=== PATIENT | male | born 2000 | race African-American/Black ===

== ENCOUNTER 2019-04-30 05:57 | Observation (INO) | payer SELFPAY ==
[~2019-04-30] VITALS: Ht 180.3 cm; Wt 66.0 kg
[2019-04-30] MEDS ORDERED: dexameTHASONE 20 MG/5 ML VIAL (J1100) IV ONE (06:15)
[2019-04-30] MEDS: IPRATROPIUM 0.5MG/ALBUTEROL 2.5MG INH SOL UD 3ML (DUONEB)(J7620) NEB SCH ×5 (06:31→18:05)
[2019-04-30 06:32] LABS: BASO # 0.1 10^3/uL (0.0-0.2); BASO % 0.6 % (0.0-1.0); EOS # 0.6 10^3/uL (0.0-0.5); EOS % 7.6 % (0.0-3.0); HEMATOCRIT 47.4 % (42.0-52.0); HEMOGLOBIN 16.5 g/dl (13.5-17.5); LYMPH % 24.9 % (24.0-44.0); MEAN CORPUSCULAR HGB CONC 34.8 g/dl (32.0-36.5); MONO # 0.6 10^3/uL (0.0-0.8); MONO % 7.7 % (0.0-5.0); NEUTROPHILS # 4.7 10^3/uL (1.5-8.5); NEUTROPHILS % 59.1 % (36.0-66.0); PLATELET COUNT, AUTOMATED 246 10^3/uL (150-450); RED BLOOD COUNT 5.15 10^6/uL (4.30-6.10); WHITE BLOOD COUNT 7.9 10^3/uL (4.0-10.0)
[2019-04-30 06:39] LABS: ABG HCO3 26.4 MEQ/L (22.0-26.0); ABG O2 SATURATION 94.6 % (95.0-99.0); ABG PARTIAL PRESSURE CO2 40.6 mmHg (35.0-45.0); ABG PARTIAL PRESSURE O2 71.1 mmHg (75.0-100.0); ABG STANDARD HCO3 26.1 MEQ/L (22.0-26.0); ABG TOTAL CO2 27.7 MEQ/L (22.0-29.0); ABG pH (ARTERIAL) 7.431 UNITS (7.350-7.450)
[2019-04-30 07:00] LABS: BLOOD UREA NITROGEN 12 MG/DL (7-18); CALCIUM LEVEL 8.8 MG/DL (8.5-10.1); CARBON DIOXIDE LEVEL 30 MEQ/L (21-32); CHLORIDE LEVEL 103 MEQ/L (98-107); CREATININE FOR GFR 1.01 MG/DL (0.70-1.30); GLUCOSE, FASTING 88 MG/DL (70-100); POTASSIUM SERUM 3.8 MEQ/L (3.5-5.1); SODIUM LEVEL 138 MEQ/L (136-145)
--- NOTE | 2019-04-30 07:54 | REP ---
Clinical: Dyspnea . Comparison: None . Findings: The mediastinum and cardiac silhouette are stable and within normal limits for portable technique. The lung briscoe are clear without acute consolidation, effusion, or pneumothorax. Skeletal structures are intact. Impression: No acute cardiopulmonary process appreciated. Electronically Signed by Tino Kenny MD 04/30/2019 07:45 A
[2019-04-30 09:03] LABS: INFLUENZA A AMPLIFICATION NEGATIVE (NEGATIVE)
[2019-04-30 09:04] LABS: INFLUENZA B AMPLIFICATION NEGATIVE (NEGATIVE)
[2019-04-30 09:27] VITALS: O2SAT 84
[2019-04-30] MEDS ORDERED: IPRATROPIUM 0.5MG/ALBUTEROL 2.5MG INH SOL UD 3ML (DUONEB)(J7620) NEB PRN (10:15)
[2019-04-30] MEDS ORDERED: ACETAMINOPHEN TAB 650MG DOSE (2X325MG) PO PRN (10:15)
--- NOTE | 2019-04-30 10:23 | HPEPDOC ---
General Date of Admission 04/30/19 Date of Service: Apr 30, 2019 Attending Physician: CAROL AVINA MD Chief Complaint The patient is a 18-year-old male admitted with a reason for visit of Difficulty Breathing. Source: Patient Exam Limitations: No limitations Timing/Duration: Day(s), Getting worse Severity: Moderate Associated Symptoms: Shortness of breath History of Present Illness 18 years old -Italian male past medical history of asthma was brought from a motel with chief complaints of shortness of breath. As per patient, he has a history of asthma and frequently gets exacerbation, but since yesterday he started having increasing shortness of breath with no associated symptoms such as chest pain, dizziness, syncope, fever, cough etc. Home Medications No Active Prescriptions or Reported Meds Allergies Coded Allergies: grass pollen (Verified Allergy, Unknown, 04/30/19) Past Medical History Medical History Asthma Surgical History None Family History Significant Family History: No pertinent family hx Social History * Smoker: Denies Alcohol: Denies A-FIB/CHADSVASC A-FIB History Current/History of A-Fib/PAF?: No Review of Systems Constitutional: Denies: Chills, Fever, Malaise, Night Sweats, Weakness, Fatigue, Weight Loss, Lethargy, Other Eyes: Denies: Pain, Vision change, Conjunctivae inflammation, Eyelid inflammation, Redness, Other ENT: Denies: Head Aches, Ear Pain, Dysphagia, Sinus Congestion, Post Nasal Drip, Sore Throat, Epistaxis, Other Symptoms Skin: Denies: Rash, Lesions, Jaundice, Bruising, Itching, Dry, Breakdown, Nail Changes, Other Pulmonary: Reports: Dyspnea Cardiovascular: Denies: Chest Pain, Palpitations, Orthopnea, Paroxysmal Noc. Dyspnea, Edema, Lt Headedness, Other Symptoms Gastrointestinal: Denies: Nausea, Vomiting, Abdominal Pain, Diarrhea, Constipation, Melena, Hematochezia, Other Symptoms Musculoskeletal: Denies: Neck Pain, Back Pain, Shoulder Pain, Arm Pain, Hand Pain, Leg Pain, Foot Pain, Joint Pain, Muscle Pain, Spasms, Other Symptoms Neurological: Denies: Weakness, Numbness, Incoordination, Change in speech, Confusion, Seizures, Other Symptoms Psych: Denies: Mood Normal, Anxiety, Depression, Memory Issues, Thoughts of Self Harm, Anger, Thoughts of Harming Other, Other Psych Physical Examination General Exam: Positive: Alert, Cooperative Eye Exam: Positive: PERRLA, Conjunctiva & lids normal ENT Exam: Positive: Atraumatic, Mucous membr. moist/pink Neck Exam: Positive: Supple Chest Exam: Positive: Wheezing (bilateral expiratory wheezing) Heart Exam: Positive: Rate Normal, Normal S1, Normal S2 Abdomen Exam: Positive: Normal bowel sounds, Soft Extremity Exam: Positive: Edema Skin Exam: Positive: Nl turgor and temperature Neuro Exam: Positive: Normal Gait, Normal Speech Psych Exam: Positive: Mental status NL, Mood NL, Oriented x 3 Vital Signs Vital Signs Date Time Temp Pulse Resp B/P (MAP) Pulse Ox O2 Delivery O2 Flow Rate FiO2 04/30/19 09:46 62 20 92 Room Air 04/30/19 09:45 122/71 (88) 04/30/19 06:09 97.0 04/30/19 06:08 93 Laboratory Data Labs 24H Laboratory Tests 2 04/30/19 06:22: Immature Granulocyte % (Auto) 0.1, White Blood Count 7.9, Red Blood Count 5.15, Hemoglobin 16.5, Hematocrit 47.4, Mean Corpuscular Volume 92.0, Mean Corpuscular Hemoglobin 32.0, Mean Corpuscular Hemoglobin Concent 34.8, Red Cell Distribution Width 11.2L, Platelet Count 246, Neutrophils (%) (Auto) 59.1, Lymphocytes (%) (Auto) 24.9, Monocytes (%) (Auto) 7.7H, Eosinophils (%) (Auto) 7.6H, Basophils (%) (Auto) 0.6, Neutrophils # (Auto) 4.7, Lymphocytes # (Auto) 2.0, Monocytes # (Auto) 0.6, Eosinophils # (Auto) 0.6H, Basophils # (Auto) 0.1, Nucleated Red Blood Cells % (auto) 0.0, Anion Gap 5L, Blood Urea Nitrogen 12, Creatinine 1.01, Sodium Level 138, Potassium Level 3.8, Chloride Level 103, Carbon Dioxide Level 30, Calcium Level 8.8, Influenza Type A (RT-PCR) NEGATIVE, Influenza Type B (RT- PCR) NEGATIVE 04/30/19 06:33: Blood Gas Bicarbonate Standard 26.1H, Arterial Blood pH 7.431, Arterial Blood Partial Pressure CO2 40.6, Arterial Blood Partial Pressure O2 71.1L, Arterial Blood Total CO2 27.7, Arterial Blood HCO3 26.4H, Arterial Blood Base Excess 2.0, Arterial Blood Oxygen Saturation 94.6L CBC/BMP Laboratory Tests 04/30/19 06:22 Red Blood Count 5.15, Mean Corpuscular Volume 92.0, Mean Corpuscular Hemoglobin 32.0, Mean Corpuscular Hemoglobin Concent 34.8, Red Cell Distribution Width 11.2 L, Neutrophils (%) (Auto) 59.1, Lymphocytes (%) (Auto) 24.9, Monocytes (%) (Auto) 7.7 H, Eosinophils (%) (Auto) 7.6 H, Basophils (%) (Auto) 0.6, Neutrophils # (Auto) 4.7, Lymphocytes # (Auto) 2.0, Monocytes # (Auto) 0.6, Eosinophils # (Auto) 0.6 H, Basophils # (Auto) 0.1, Calcium Level 8.8 Microbiology Microbiology 04/30/19 Blood Culture, Received Pending Problems (1) Asthma with acute exacerbation Status: Acute Problem Text: 2 years old -Italian male with past medical history of asthma with frequent exacerbation again. He developed increasing shortness of breath. No fever, cough or sputum production. She and received Decadron and nebulizer in ED, but still has a residual wheezing IN THE ED PHYSICIAN WANTED TO ADMIT PATIENT TO BE ADMITTED for observation Admit to [facility] floor Solu-Medrol 80 mg IV every 8 hours DuoNeb every 6 hours and every 2 hours when necessary Oxygen support Regular diet Activity as tolerated DVT prophylaxis not needed as patient is physically active Plan / VTE VTE Prophylaxis Ordered?: No VTE Exclusion Mechanical Proph: Low Risk for VTE VTE Exclusion Pharmacological: At Low Risk for VTE CAROL AVINA MD Apr 30, 2019 10:23
[2019-04-30 12:50] VITALS: BP 105/52
[2019-04-30 13:30] VITALS: BP 136/71
[2019-04-30] MEDS ORDERED: methylPREDNISolone INJ 125 MG/2 ML VIAL (J2930) IV SCH (14:00)
--- NOTE | 2019-05-01 07:25 | DS.PDOC ---
Discharge Summary General Date of Admission Apr 30, 2019 at 05:58 Date of Discharge 04/30/19 Attending Physician: CAROL AVINA MD Discharge Summary PROCEDURES PERFORMED DURING STAY: None. ADMITTING DIAGNOSES: 1. Exacerbation Of asthma. DISCHARGE DIAGNOSES: 1. Exacerbation of asthma. COMPLICATIONS/CHIEF COMPLAINT: Asthma With Acute Exacerbation. HISTORY OF PRESENT ILLNESS: 18 years old -[place] male past medical history of asthma was brought from a motel with chief complaints of shortness of breath. As per patient, he has a history of asthma and frequently gets exacerbation, but since yesterday he started having increasing shortness of breath with no associated symptoms such as chest pain, dizziness, syncope, fever, cough etc.. HOSPITAL COURSE: Patient was admitted with the diagnosis of exacerbation of asthma. Patient was started on nebulizer treatment as well as IV steroids. Once patient felt better. He decided to sign out AMA. All the risks were explained to him by RN, but he decided to leave anyway. Patient was not seen by me on discharge. DISCHARGE MEDICATIONS: Please see below. ALLERGIES: Please see below. PHYSICAL EXAMINATION ON DISCHARGE: Patient was not signed by me on discharge. Please refer to physical exam on admission VITAL SIGNS: Please see below. GENERAL: HEENT: NECK: CARDIOVASCULAR EXAMINATION: RESPIRATORY EXAMINATION: ABDOMINAL EXAMINATION: EXTREMITIES: SKIN: NEUROLOGICAL EXAMINATION: PSYCHIATRIC EXAMINATION: LABORATORY DATA: Please see below. IMAGING: Chest x-ray within normal limits PROGNOSIS: Signed out AMA ACTIVITY: As tolerated. DIET: As tolerated DISCHARGE PLAN: Follow with PCP in one week DISPOSITION: 07 Against Medical Advice. DISCHARGE INSTRUCTIONS: 1. As per discharge instructions. ITEMS TO FOLLOWUP ON ON OUTPATIENT: 1. [Follow with PCP in one week DISCHARGE CONDITION: Signed out AMA. TIME SPENT ON DISCHARGE: 15 minutes. Vital Signs/I&Os Vital Signs Date Time Temp Pulse Resp B/P (MAP) Pulse Ox O2 Delivery O2 Flow Rate FiO2 04/30/19 18:15 87 20 93 3.0 04/30/19 13:30 136/71 (92) 04/30/19 12:50 98.1 04/30/19 10:46 Room Air 04/30/19 06:08 93 I&O- Last 24 Hours up to 6 AM 05/01/19 05:59 Intake Total 360 ml Balance 360 ml Microbiology Microbiology 04/30/19 Blood Culture - Preliminary, Resulted No growth after 24 hours . All specim... Discharge Medications No Active Prescriptions or Reported Meds Allergies Coded Allergies: grass pollen (Verified Allergy, Unknown, 04/30/19) CAROL AVINA MD May 01, 2019 07:25
== END 2019-04-30 18:55 | disposition left against medical advice (07) ==
LOC: M ED 05:57 → M ED INP 05:58 → M PED 12:45
PROVIDERS: ADMIT Internal Medicine; ATTEND Internal Medicine
DX: J45.901 Unspecified asthma with (acute) exacerbation (principal); Z53.21 Procedure and treatment not carried out due to patient leaving prior to being seen by health care provider; Z91.048 Other nonmedicinal substance allergy status
CPT/HCPCS: 36415; 36600; 71045; 80048; 82803; 85025; 87040; 87502; 93041; 94640; 96374; 96376; 99285; J1100; J2930